=== PATIENT | male | born 1995 | race Caucasian/White ===

== ENCOUNTER 2016-08-19 01:58 | Emergency (ER) | payer MEDICAID ==
[~2016-08-19] VITALS: Ht 162.6 cm; Wt 70.0 kg
[2016-08-19 02:03] VITALS: Ht 162.6 cm; Wt 70.0 kg
--- NOTE | 2016-08-19 02:29 | ERD ---
ER Documentation Chief Complaint Date/Time DATE: 08/19/16 TIME: 02:29 Chief Complaint right ear possible foreign body x 30 minutes HPI 20-year-old male presents to ED with chief complaint of bug in right ear. States that he was sleeping and was awoken 30 minutes ago when he felt a crawling sensation in his right ear. Since then he continues to hear something crawling in his ear. He denies trauma, ear discharge, bleeding, hearing loss, and fever. Currently rates his pain a 5 out of 10 in severity. Has not taken any medications for relief of pain. ROS All systems reviewed and are negative except as per history of present illness. Medications Home Meds Active Scripts Ciprofloxacin Hcl/Dexameth (Ciprodex Otic Suspension) 7.5 Ml Drops.susp, 4 DROP RIGHT EAR BID for 7 Days, EA Prov:Saumya Walker PA-C 08/19/16 Allergies Allergies: Coded Allergies: No Known Drug Allergies (Verified Allergy, Unknown, 08/19/16) PMhx/Soc Medical and Surgical Hx: pt denies Medical Hx, pt denies Surgical Hx History of Surgery: No Anesthesia Reaction: No Hx Neurological Disorder: No Hx Respiratory Disorders: No Hx Cardiac Disorders: No Hx Psychiatric Problems: No Hx Miscellaneous Medical Probl: No Hx Alcohol Use: No Hx Substance Use: No Hx Tobacco Use: No Smoking Status: Never smoker Physical Exam Vitals Vital Signs Date Time Temp Pulse Resp B/P Pulse Ox O2 Delivery O2 Flow Rate FiO2 08/19/16 02:03 97.8 60 20 126/71 100 Physical Exam GENERAL: Non-toxic. No apparent signs of distress. HEENT: Atraumatic. Bilateral eyes are PERRL EOM intact. Normal conjunctiva, no injection. No eyelid or lower eyelid swelling noted. Ears: Live insect seen in right ear canal, after removal the bilateral tympanic membranes appear normal, no erythema or bulging. No ear canal swelling. No ear discharge. Nose: no nasal discharge. Throat: Oropharynx normal. Tongue pink and moist. No tonsillar swelling or tonsillar exudates. No lymphadenopathy. LUNGS: Clear to auscultation. No accessory muscle use. No wheezing, no crackles. No signs or symptoms of respiratory distress. HEART: Regular rate and rhythm. No murmurs, clicks, rubs or gallops. SKIN: There is no apparent rash, petechiae, erythema or swelling. Good skin turgor. Procedures/MDM Patient presented with complaint of insect in right ear, states that he was sleeping 30 minutes ago was awoken by sensation of something crawling this year. On examination there was live and 16 crawling and right ear canal. The ear was irrigated with 10 cc of normal saline and the live insect was dislodged from the ear canal. Patient tolerated procedure well. On reexamination there was no ear canal swelling, the tympanic membrane appeared normal no signs of rupture or perforation. Patient denies hearing loss or changes in hearing. I explained that due to high pressure irrigation of your term of insect, at times otitis externa develops afterwards. I provided a prescription for Ciprodex otic solution, expect the patient that he should withhold filling it for the next few days. If he begins to develop pain in the right ear, then he may fill the prescription and apply the eardrops. At this time low suspicion for otitis externa, otitis media, retained foreign body in ear, mastoiditis, and tympanic membrane perforation. Patient still for discharge and outpatient management. Advised to follow-up with PCP in 1-2 days. Departure Diagnosis: Primary Impression: Foreign body of ear, right Encounter type: initial encounter Qualified Code: T16.1XXA - Foreign body of ear, right, initial encounter Condition: Saumya Robles PA-C Aug 19, 2016 02:29
[2016-08-19] MEDS ORDERED: CIPR7.5D4 RIGHT EAR (02:31)
== END 2016-08-19 02:41 | disposition home or self-care (01) ==
LOC: FTE 01:58
DX: T16.1XXA Foreign body in right ear, initial encounter (principal); X58.XXXA Exposure to other specified factors, initial encounter; Y92.9 Unspecified place or not applicable
CPT/HCPCS: 99283

== ENCOUNTER 2016-08-23 15:38 | Emergency (ER) | payer MEDICAID ==
[~2016-08-23] VITALS: Ht 160 cm; Wt 69.5 kg
[~2016-08-23 15:38] MED LIST: CIPR7.5D4 RIGHT EAR
[2016-08-23 16:20] VITALS: Ht 160 cm; Wt 69.5 kg
--- NOTE | 2016-08-23 18:01 | ERA ---
ER Documentation Chief Complaint Date/Time DATE: 08/23/16 TIME: 17:58 Chief Complaint RIGHT CARD PAIN X 3 MONTHS FROM SOCCER HPI Patient is a 20-year-old male who presents complaining of right knee pain and right ankle pain. [employer] is the medical student. Patient sustained an injury in soccer 3 months ago and does not remember complete mechanism of injury. Patient states that he has not tried any conservative measures or medications to improve his symptoms. Patient denies any medical conditions. ROS All systems reviewed and are negative except as per history of present illness. Medications Home Meds Active Scripts Ibuprofen* (Motrin*) 600 Mg Tab, 600 MG PO Q6H Y for PAIN AND OR ELEVATED TEMP, #30 TAB Prov:JUWAN LONDON PA-C 08/23/16 Ciprofloxacin Hcl/Dexameth (Ciprodex Otic Suspension) 7.5 Ml Drops.susp, 4 DROP RIGHT EAR BID for 7 Days, EA Prov:Saumya Walker PA-C 08/19/16 Allergies Allergies: Coded Allergies: No Known Drug Allergies (Verified Allergy, Unknown, 08/19/16) PMhx/Soc History of Surgery: No Anesthesia Reaction: No Hx Neurological Disorder: No Hx Respiratory Disorders: No Hx Cardiac Disorders: No Hx Psychiatric Problems: No Hx Miscellaneous Medical Probl: No Hx Alcohol Use: No Hx Substance Use: No Hx Tobacco Use: No Smoking Status: Never smoker Physical Exam Vitals Vital Signs Date Time Temp Pulse Resp B/P Pulse Ox O2 Delivery O2 Flow Rate FiO2 08/23/16 16:20 98.3 78 18 122/78 98 Physical Exam Const: Healthy appearing Faroese-speaking 20-year-old male Head: Atraumatic Eyes: Normal Conjunctiva ENT: Normal External Ears, Nose and Mouth. Neck: Full range of motion..~ No meningismus. Resp: Clear to auscultation bilaterally Cardio: Regular rate and rhythm, no murmurs Abd: Soft, non tender, non distended. Normal bowel sounds Skin: No petechiae or rashes Back: No midline or flank tenderness Ext: No cyanosis, or edema. No tenderness to palpation. No appreciable edema. Range of motion intact bilaterally. Negative Apley grind test. Positive Cope sign. Negative laxity to the lateral collateral joints and negative anterior and posterior drawer signs. Neur: Awake and alert. Neurovascularly intact bilaterally with dorsalis pedis and posterior tibial pulses 2+ bilaterally. Psych: Normal Mood and Affect Procedures/MDM This is a 20-year-old healthy-appearing male who sustained an injury in soccer to his right ankle and right knee 3 months ago. Patient now is complaining of pain in the same areas and has not tried any conservative measures or medications to improve his symptoms. On physical examination patient has crepitus and a positive Bassam's test. Patient has a negative Apley grind's test. Patient's ankle exam is unremarkable with a negative drawer sign. Patient is able to ambulate normally. Denies any numbness or tingling in the legs. At this time I do not suspect there to be any neurovascular involvement as the patient is neurovascularly intact bilaterally with pulses 2+. X-ray results are as follows: No acute fracture or dislocation. XR of the affected site was unremarkable. At this time I am unable to rule out tendon or ligamentous injuries. Thus, the pt was given recommendations to follow up with ortho and advised to follow up with their PCP in the next 1-2 days to be formally referred to, and further evaluated for soft tissue injuries , by an internet network specialist. Pt will be discharged with an NSAID to control the pain. There is no need for stabilization with a brace or cast at this time. The pts function does not require an assistance device for ADL. Departure Condition: Stable JUWAN LONDON PA-C Aug 23, 2016 18:01
--- NOTE | 2016-08-23 18:41 | RADRPT ---
PROCEDURE: X-ray right ankle CLINICAL INDICATION: Generalized pain in the right ankle TECHNIQUE: 3 views right ankle COMPARISON: None FINDINGS: No acute fracture or dislocation. Soft tissues unremarkable. IMPRESSION: No acute fracture. RPTAT: [facility] Physician Mary Date Time Electronically viewed and signed by Soco Spear Physician on 08/23/2016 18:40 RS/
--- NOTE | 2016-08-23 18:45 | RADRPT ---
PROCEDURE: X-ray right knee CLINICAL INDICATION: Trauma to the right knee TECHNIQUE: 3 views right knee COMPARISON: None FINDINGS: Reference marker is directed towards the lateral right knee, without evident underlying radiographic abnormality. No acute fracture dislocation. Soft tissues unremarkable. IMPRESSION: No acute fracture. RPTAT: [facility] Physician Mary Date Time Electronically viewed and signed by Soco Spear Physician on 08/23/2016 18:45 RS/
[2016-08-23] MEDS ORDERED: IBUP-1542 PO (18:50)
== END 2016-08-23 19:00 | disposition home or self-care (01) ==
LOC: FTE 15:38
DX: M25.571 Pain in right ankle and joints of right foot (principal); M25.561 Pain in right knee
CPT/HCPCS: 73562; 73610; Z7502